=== PATIENT | male | born 1955 | race Caucasian/White ===

== ENCOUNTER 2018-05-31 09:15 | Inpatient (IN) | payer OTHER ==
[~2018-05-31] VITALS: Ht 182.9 cm; Wt 129.0 kg
[2018-05-31] MEDS ORDERED: LABE100T6 PO (09:42)
[2018-05-31] MEDS ORDERED: HYDR100T25 PO (09:42)
[2018-05-31] MEDS ORDERED: BENA40TA3 PO (09:43)
[2018-05-31] MEDS ORDERED: ALLO100T30 PO (09:44)
[2018-05-31] MEDS ORDERED: DOXA4TAB3 PO (09:44)
[2018-05-31 10:16] LABS: PROTHROMBIN TIME 10.6 Seconds (9.6-11.5)
--- NOTE | 2018-05-31 10:18 | NUR ---
PATIENT TO XRAY AT THIS TIME.
[2018-05-31 10:23] LABS: MEAN CORPUSCULAR HEMOGLOBIN 31.6 pg (27.5-34.5); MEAN CORPUSCULAR VOLUME 92.9 fL (81-97); MEAN PLATELET VOLUME 11.9 fL (7.4-10.4); PLATELET COUNT 80 x10^3/uL (130-400); RED BLOOD COUNT 4.43 x10^6/uL (4.38-5.82); RED CELL DISTRIBUTION WIDTH 13.2 % (9.4-14.8)
[2018-05-31 10:24] LABS: BASOPHILS # (AUTO) 0.03 x10^3/uL (0-0.1); BASOPHILS % (AUTO) 0 % (0-1); EOSINOPHILS # (AUTO) 0.28 x10^3/uL (0-0.4); EOSINOPHILS % (AUTO) 4 % (1-7); LYMPHOCYTES % (AUTO) 22 % (22-44); MD SCAN; MONOCYTES # (AUTO) 0.67 x10^3/uL (0.2-0.8); MONOCYTES % (AUTO) 8 % (2-9); NEUTROPHILS # (AUTO) 5.41 x10^3/uL (1.8-6.8); NEUTROPHILS % (AUTO) 66 % (42-75)
--- NOTE | 2018-05-31 10:28 | NUR ---
PATIENT BACK FROM XRAY.
[2018-05-31 10:35] LABS: ALBUMIN 3.3 g/dL (3.4-5.0); ANION GAP 7 mmol/L (5-15); CALCIUM 8.2 mg/dL (8.5-10.1); CHLORIDE 107 mmol/L (98-107)
[2018-05-31 10:48] LABS: ALANINE AMINOTRANSFERASE 30 U/L (12-78); ALKALINE PHOSPHATASE 118 U/L (45-117); BILIRUBIN,TOTAL 0.9 mg/dL (0.2-1.0); CREATININE 0.96 mg/dL (0.7-1.3)
[2018-05-31] MEDS ORDERED: AMPICILLIN/SULBACTAM 3 GM in SODIUM CHLORIDE 0.9% 100 ML IV ONE (10:56)
[2018-05-31] MEDS ORDERED: LIDOCAINE 1%, 10ML INFIL ONE (11:30)
[2018-05-31] MEDS ORDERED: LIDOCAINE-MPF 1%, 5ML ONE (11:30)
--- NOTE | 2018-05-31 12:21 | NUR ---
PIV STARTED AND IV UNASYN STARTED.
--- NOTE | 2018-05-31 12:59 | NUR ---
BREAK RN. ADMITTING PROVIDER AT BEDSIDE FOR EVALUATION. PT RESTING COMFORTABLY. VSS. CALL LIGHT IN REACH. FALL PRECAUTIONS IN PLACE.
--- NOTE | 2018-05-31 13:10 | NUR ---
BEDSIDE REPORT AND CARE BACK TO PRIMARY RN BILL RN AT THIS TIME.
--- NOTE | 2018-05-31 13:11 | NUR ---
SBAR TELEPHONE HAND-OFF REPORT GIVEN TO LEANNE MONET. PATIENT READY TO GO TO THE HOSPITAL ROOM.
[2018-05-31] MEDS ORDERED: SODIUM CHLORIDE 0.9% 1,000 ML IV SCH (13:36)
[2018-05-31] MEDS ORDERED: ACETAMINOPHEN 325 MG TABLET PO PRN (14:00)
[2018-05-31] MEDS ORDERED: hydrALAzine 20 MG/ML, 1ML IVPush PRN (14:00)
[2018-05-31] MEDS ORDERED: LABETALOL 5MG/ML, 20ML IVPush PRN (14:00)
[2018-05-31 14:16] VITALS: BP 123/65
[2018-05-31 14:33] LABS: HEMOGLOBIN A1C 5.4 % (4.2-6.3); THYROID STIMULATING HORMONE 2.24 mIU/L (0.358-3.740)
[2018-05-31 15:47] LABS: HCT (SEDRATE) 41.2 % (39.2-51.8)
[2018-05-31] MEDS ORDERED: VANCOMYCIN PER PHARMACY MC PRN (16:00)
[2018-05-31] MEDS ORDERED: PHARMACOKINETIC CONSULTATION MC ONE (16:30)
[2018-05-31] MEDS ORDERED: PHARMACOKINETIC MONITORING MC PRN (16:30)
[2018-05-31] MEDS: VANCOMYCIN 2,000 MG in SODIUM CHLORIDE 0.9% 500 ML IV SCH (17:09)
[2018-05-31] MEDS ORDERED: GADOBUTROL 10 MMOL/10 ML PFS ONE (18:06)
[2018-05-31 20:00] VITALS: BP 135/75
[2018-05-31] MEDS: AMPICILLIN/SULBACTAM 3 GM in SODIUM CHLORIDE 0.9% 100 ML IV SCH (20:20)
[2018-06-01 01:26] VITALS: BP 131/82
[2018-06-01] MEDS: AMPICILLIN/SULBACTAM 3 GM in SODIUM CHLORIDE 0.9% 100 ML IV SCH ×4 (01:58→20:44)
[2018-06-01] MEDS: VANCOMYCIN 2,000 MG in SODIUM CHLORIDE 0.9% 500 ML IV SCH ×2 (04:40→22:27)
[2018-06-01 05:25] LABS: MEAN CORPUSCULAR HEMOGLOBIN 32.1 pg (27.5-34.5); MEAN CORPUSCULAR HGB CONC 34.4 g/dL (33.2-36.2); MEAN CORPUSCULAR VOLUME 93.4 fL (81-97); RED BLOOD COUNT 4.36 x10^6/uL (4.38-5.82); RED CELL DISTRIBUTION WIDTH 13.4 % (9.4-14.8)
[2018-06-01 05:27] LABS: CHLORIDE 108 mmol/L (98-107)
[2018-06-01 05:45] LABS: ALANINE AMINOTRANSFERASE 30 U/L (12-78); ALBUMIN 3.3 g/dL (3.4-5.0); ALKALINE PHOSPHATASE 109 U/L (45-117); ANION GAP 6 mmol/L (5-15); BILIRUBIN,TOTAL 1.2 mg/dL (0.2-1.0); CALCIUM 8.2 mg/dL (8.5-10.1); TOTAL PROTEIN 6.8 g/dL (6.4-8.2)
[2018-06-01 06:06] LABS: PLATELET COUNT 87 x10^3/uL (130-400)
[2018-06-01 06:07] LABS: MD YES
[2018-06-01 06:09] LABS: BAND#(MANUAL) 0.15 x10^3/uL; BANDS%(MANUAL) 2 % (0-7); EOS% (MANUAL) 4 % (1-7); LYMPH#(MANUAL) 1.65 x10^3/uL (1-3.4); LYMPHS% (MANUAL) 22 % (22-44); MONOS#(MANUAL) 0.38 x10^3/uL (0.3-2.7); MONOS% (MANUAL) 5 % (2-9); REACTIVE LYMPHS # (MANUAL) 0.38 x10^3/uL (0-0); REACTIVE LYMPHS % (MANUAL) 5 % (0-0); SEG#(MANUAL) 4.65 x10^3/uL (1.8-6.8); SEGS% (MANUAL) 62 % (42-75)
[2018-06-01 06:10] LABS: <PLATELET ESTIMATE> DECREASED; <RBC MORPHOLOGY> NORMAL; LARGE PLATELETS 1+
[2018-06-01 07:07] VITALS: BP 132/72
[2018-06-01] MEDS: BENAZEPRIL 20 MG TABLET PO SCH (09:24)
[2018-06-01] MEDS: ALLOPURINOL 100 MG TABLET PO SCH (09:25)
[2018-06-01] MEDS: LABETALOL 100 MG TABLET PO SCH (09:25)
[2018-06-01] MEDS: DOXAZOSIN 2MG TABLET PO SCH (09:25)
[2018-06-01 13:41] VITALS: BP 148/80
[2018-06-01] MEDS ORDERED: MIDAZOLAM 1 MG/ML, 2ML ONE (17:18)
[2018-06-01] MEDS ORDERED: FENTANYL PF 100 MCG/2ML ONE ×2 (17:18→19:16)
[2018-06-01] MEDS ORDERED: BUPIVACAINE/PF 0.25% ONE (17:53)
[2018-06-01] MEDS ORDERED: DEXAMETHASONE 4 MG/ML, 1ML ONE (18:13)
[2018-06-01] MEDS ORDERED: PROPOFOL 10 MG/ML, 20ML ONE (18:13)
[2018-06-01] MEDS ORDERED: ONDANSETRON 2MG/ML, 2ML ONE (18:13)
[2018-06-01] MEDS ORDERED: SCOPOLAMINE PATCH, 1.5MG PATCH.TD72 TD PRN (19:00)
[2018-06-01] MEDS ORDERED: ALBUTEROL/IPRATROPIUM 2.5MG/0.5MG, 3 ML NPPB PRN (19:00)
[2018-06-01] MEDS ORDERED: ACETAMINOPHEN 325 MG TABLET PO PRN (19:00)
[2018-06-01] MEDS ORDERED: OXYcodone 5 MG/5 ML ORAL.SOL UDC PO PRN (19:00)
[2018-06-01] MEDS ORDERED: hydrALAzine 20 MG/ML, 1ML IV PRN (19:00)
[2018-06-01] MEDS ORDERED: METOPROLOL 1 MG/ML, 5ML IV PRN (19:00)
[2018-06-01] MEDS ORDERED: HYDROmorphone 2 MG/ML, 1ML IVPush PRN (19:00)
[2018-06-01] MEDS ORDERED: MIDAZOLAM 1 MG/ML, 2ML IV PRN (19:00)
[2018-06-01] MEDS ORDERED: PROMETHAZINE 25 MG/ML, 1ML IV PRN (19:00)
[2018-06-01] MEDS ORDERED: FENTANYL PF 100 MCG/2ML IV PRN (19:00)
[2018-06-01] MEDS ORDERED: ONDANSETRON 2MG/ML, 2ML IV PRN (19:00)
[2018-06-01] MEDS ORDERED: ACETAMINOPHEN 650 MG/20.3 ML UDC ONE (19:10)
[2018-06-01] MEDS ORDERED: OXYcodone 5 MG/5 ML ORAL.SOL UDC ONE (19:11)
[2018-06-01] MEDS ORDERED: hydrALAzine 20 MG/ML, 1ML ONE (19:33)
[2018-06-01 20:32] VITALS: BP 128/70
[2018-06-01] MEDS ORDERED: ONDANSETRON 2MG/ML, 2ML IVPush PRN (21:30)
[2018-06-01] MEDS: OXYcodone/APAP 5/325MG TABLET PO PRN ×2 (22:27→23:12)
[2018-06-02 00:54] VITALS: BP 106/75
[2018-06-02] MEDS: AMPICILLIN/SULBACTAM 3 GM in SODIUM CHLORIDE 0.9% 100 ML IV SCH ×4 (02:33→20:11)
[2018-06-02] MEDS: OXYcodone/APAP 5/325MG TABLET PO PRN ×5 (02:54→20:11)
[2018-06-02 07:30] VITALS: BP 143/70
[2018-06-02] MEDS: DOXAZOSIN 2MG TABLET PO SCH (08:04)
[2018-06-02] MEDS: ALLOPURINOL 100 MG TABLET PO SCH (08:04)
[2018-06-02] MEDS: BENAZEPRIL 20 MG TABLET PO SCH (08:05)
[2018-06-02] MEDS: LABETALOL 100 MG TABLET PO SCH (08:05)
[2018-06-02] MEDS: VANCOMYCIN 2,000 MG in SODIUM CHLORIDE 0.9% 500 ML IV SCH ×2 (10:19→22:02)
[2018-06-02] MEDS ORDERED: BISACODYL 10 MG SUPP PR PRN (12:30)
[2018-06-02] MEDS ORDERED: SENNA/DOCUSATE TABLET PO PRN (12:30)
[2018-06-02] MEDS: DOCUSATE 100 MG CAPSULE PO SCH (13:02)
[2018-06-02 13:30] VITALS: BP 147/87
[2018-06-02 19:36] VITALS: BP 136/75
[2018-06-03] MEDS: OXYcodone/APAP 5/325MG TABLET PO PRN ×6 (00:11→22:07)
[2018-06-03] MEDS: AMPICILLIN/SULBACTAM 3 GM in SODIUM CHLORIDE 0.9% 100 ML IV SCH ×2 (02:42→08:09)
[2018-06-03 02:57] VITALS: BP 99/60
[2018-06-03 07:43] VITALS: BP 122/71
[2018-06-03] MEDS: LABETALOL 100 MG TABLET PO SCH (08:12)
[2018-06-03] MEDS: DOXAZOSIN 2MG TABLET PO SCH (08:13)
[2018-06-03] MEDS: DOCUSATE 100 MG CAPSULE PO SCH (08:14)
[2018-06-03] MEDS: BENAZEPRIL 20 MG TABLET PO SCH (08:14)
[2018-06-03] MEDS: ALLOPURINOL 100 MG TABLET PO SCH (08:14)
[2018-06-03] MEDS: VANCOMYCIN 2,000 MG in SODIUM CHLORIDE 0.9% 500 ML IV SCH (12:18)
[2018-06-03 13:59] VITALS: BP 122/66
[2018-06-03] MEDS: SODIUM CHLORIDE 0.9% IVPB SCH (14:06)
[2018-06-03] MEDS: DAPTOMYCIN IVPB SCH (14:06)
[2018-06-03 20:31] VITALS: BP 153/76
[2018-06-04] MEDS: OXYcodone/APAP 5/325MG TABLET PO PRN ×4 (02:41→20:46)
[2018-06-04 02:52] VITALS: BP 151/81
[2018-06-04 05:16] LABS: MEAN CORPUSCULAR HEMOGLOBIN 31.7 pg (27.5-34.5); MEAN CORPUSCULAR HGB CONC 33.9 g/dL (33.2-36.2); MEAN CORPUSCULAR VOLUME 93.3 fL (81-97); RED BLOOD COUNT 4.03 x10^6/uL (4.38-5.82)
[2018-06-04 05:23] LABS: ALBUMIN 2.9 g/dL (3.4-5.0); ANION GAP 5 mmol/L (5-15); CHLORIDE 108 mmol/L (98-107)
[2018-06-04 05:24] LABS: HCT (SEDRATE) 37.6 % (39.2-51.8)
[2018-06-04 05:33] LABS: ALANINE AMINOTRANSFERASE 44 U/L (12-78); ALKALINE PHOSPHATASE 90 U/L (45-117); BILIRUBIN,TOTAL 0.4 mg/dL (0.2-1.0); CALCIUM 7.8 mg/dL (8.5-10.1); CREATINE KINASE, TOTAL 49 U/L (39-308); CREATININE 1.05 mg/dL (0.7-1.3); TOTAL PROTEIN 6.1 g/dL (6.4-8.2)
[2018-06-04 05:56] LABS: PLATELET COUNT 78 x10^3/uL (130-400); RED CELL DISTRIBUTION WIDTH 13.3 % (9.4-14.8)
[2018-06-04 05:58] LABS: BASOPHILS # (AUTO) 0.04 x10^3/uL (0-0.1); BASOPHILS % (AUTO) 1 % (0-1); EOSINOPHILS # (AUTO) 0.29 x10^3/uL (0-0.4); EOSINOPHILS % (AUTO) 4 % (1-7); LYMPHOCYTES # (AUTO) 2.16 x10^3/uL (1-3.4); LYMPHOCYTES % (AUTO) 29 % (22-44); MD SCAN; MONOCYTES # (AUTO) 0.75 x10^3/uL (0.2-0.8); MONOCYTES % (AUTO) 10 % (2-9); NEUTROPHILS # (AUTO) 4.27 x10^3/uL (1.8-6.8); NEUTROPHILS % (AUTO) 57 % (42-75)
[2018-06-04 07:14] VITALS: BP 143/76
[2018-06-04] MEDS: LABETALOL 100 MG TABLET PO SCH (09:08)
[2018-06-04] MEDS ORDERED: GADOBUTROL 10 MMOL/10 ML PFS ONE (09:50)
[2018-06-04] MEDS: BENAZEPRIL 20 MG TABLET PO SCH (10:25)
[2018-06-04] MEDS: DOCUSATE 100 MG CAPSULE PO SCH (10:25)
[2018-06-04] MEDS: DOXAZOSIN 2MG TABLET PO SCH (10:26)
[2018-06-04] MEDS: ALLOPURINOL 100 MG TABLET PO SCH (10:26)
[2018-06-04 12:39] VITALS: BP 156/79
[2018-06-04] MEDS: SODIUM CHLORIDE 0.9% IVPB SCH (13:52)
[2018-06-04] MEDS: DAPTOMYCIN IVPB SCH (13:52)
[2018-06-04] MEDS ORDERED: LIDOCAINE-MPF 1%, 5ML ONE (14:51)
[2018-06-04 19:28] VITALS: BP 149/83
[2018-06-05 01:45] VITALS: BP 141/78
[2018-06-05 07:24] VITALS: BP 162/95
[2018-06-05] MEDS: LABETALOL 100 MG TABLET PO SCH (09:01)
[2018-06-05] MEDS: DOXAZOSIN 2MG TABLET PO SCH (09:02)
[2018-06-05] MEDS: BENAZEPRIL 20 MG TABLET PO SCH (09:02)
[2018-06-05] MEDS: OXYcodone/APAP 5/325MG TABLET PO PRN ×2 (09:02→17:33)
[2018-06-05] MEDS: ALLOPURINOL 100 MG TABLET PO SCH (09:02)
[2018-06-05] MEDS: DOCUSATE 100 MG CAPSULE PO SCH (09:02)
[2018-06-05 12:58] VITALS: BP 146/74
[2018-06-05] MEDS: DAPTOMYCIN IVPB SCH (14:03)
[2018-06-05] MEDS: SODIUM CHLORIDE 0.9% IVPB SCH (14:03)
[2018-06-05 19:43] VITALS: BP 158/86
[2018-06-06 00:51] VITALS: BP 141/84
[2018-06-06] MEDS: OXYcodone/APAP 5/325MG TABLET PO PRN ×3 (00:53→18:12)
[2018-06-06 08:10] VITALS: BP 153/78
[2018-06-06] MEDS: LABETALOL 100 MG TABLET PO SCH (09:00)
[2018-06-06] MEDS: DOCUSATE 100 MG CAPSULE PO SCH (09:35)
[2018-06-06] MEDS: DOXAZOSIN 2MG TABLET PO SCH (09:35)
[2018-06-06] MEDS: BENAZEPRIL 20 MG TABLET PO SCH (09:35)
[2018-06-06] MEDS: ALLOPURINOL 100 MG TABLET PO SCH (09:36)
[2018-06-06 14:00] VITALS: BP 152/88
[2018-06-06] MEDS: SODIUM CHLORIDE 0.9% IVPB SCH (14:08)
[2018-06-06] MEDS: DAPTOMYCIN IVPB SCH (14:08)
[2018-06-06 19:25] VITALS: BP 152/83
[2018-06-07] MEDS: OXYcodone/APAP 5/325MG TABLET PO PRN ×2 (02:20→15:15)
[2018-06-07 02:27] VITALS: BP 151/82
[2018-06-07 08:00] VITALS: BP 147/80
[2018-06-07] MEDS: LABETALOL 100 MG TABLET PO SCH (09:00)
[2018-06-07] MEDS ORDERED: DAPTOMYCIN 800 MG in SODIUM CHLORIDE 0.9% 100 ML IVPB SCH (09:04)
[2018-06-07] MEDS: BENAZEPRIL 20 MG TABLET PO SCH (09:52)
[2018-06-07] MEDS: DOCUSATE 100 MG CAPSULE PO SCH (09:53)
[2018-06-07] MEDS: ALLOPURINOL 100 MG TABLET PO SCH (09:54)
[2018-06-07] MEDS: DOXAZOSIN 2MG TABLET PO SCH (09:54)
[2018-06-07 13:15] VITALS: BP 155/75
[2018-06-07 14:00] LABS: BASOPHILS # (AUTO) 0.02 x10^3/uL (0-0.1); BASOPHILS % (AUTO) 0 % (0-1); EOSINOPHILS # (AUTO) 0.29 x10^3/uL (0-0.4); EOSINOPHILS % (AUTO) 4 % (1-7); HEMOGRAM NOTE RECHECKED; LYMPHOCYTES # (AUTO) 1.75 x10^3/uL (1-3.4); LYMPHOCYTES % (AUTO) 25 % (22-44); MD NO; MEAN CORPUSCULAR HEMOGLOBIN 32.1 pg (27.5-34.5); MEAN CORPUSCULAR HGB CONC 34.5 g/dL (33.2-36.2); MEAN CORPUSCULAR VOLUME 92.8 fL (81-97); MEAN PLATELET VOLUME 12.1 fL (7.4-10.4); MONOCYTES # (AUTO) 0.54 x10^3/uL (0.2-0.8); MONOCYTES % (AUTO) 8 % (2-9); NEUTROPHILS # (AUTO) 4.49 x10^3/uL (1.8-6.8); NEUTROPHILS % (AUTO) 63 % (42-75); PLATELET COUNT 90 x10^3/uL (130-400); RED CELL DISTRIBUTION WIDTH 13.2 % (9.4-14.8)
[2018-06-07] MEDS ORDERED: OXYC-302 PO (14:21)
[2018-06-07] MEDS ORDERED: DAPT500V6 IV (14:21)
[2018-06-07] MEDS ORDERED: FLU VAC QS18-19(4YR UP)CEL/PF 0.5ML IM-VACC ONE (16:30)
== END 2018-06-07 17:03 | disposition home or self-care (01) | DRG 504 ==
LOC: ED 10:57 → EDIP 10:58 → ED 11:11 → 3NW 13:39
PROVIDERS: ADMIT Hospitalist; ATTEND Hospitalist
PROC: 0H9NXZZ Drainage of Left Foot Skin, External Approach (ICD-10-PCS; 2018-05-31)
PROC: 3E0T3BZ Introduction of Anesthetic Agent into Peripheral Nerves and Plexi, Percutaneous Approach (ICD-10-PCS; 2018-06-01)
PROC: 0Y6P0Z1 Detachment at Right 1st Toe, High, Open Approach (ICD-10-PCS; principal; 2018-06-01 18:00)
PROC: 02HV33Z Insertion of Infusion Device into Superior Vena Cava, Percutaneous Approach (ICD-10-PCS; 2018-06-04)
PROC: B548ZZA Ultrasonography of Superior Vena Cava, Guidance (ICD-10-PCS; 2018-06-04)
PROC: B5181ZA Fluoroscopy of Superior Vena Cava using Low Osmolar Contrast, Guidance (ICD-10-PCS; 2018-06-04)
DX: M86.171 Other acute osteomyelitis, right ankle and foot (principal); D69.3 Immune thrombocytopenic purpura; L03.116 Cellulitis of left lower limb; L02.612 Cutaneous abscess of left foot; B95.62 Methicillin resistant Staphylococcus aureus infection as the cause of diseases classified elsewhere; I10 Essential (primary) hypertension; R73.9 Hyperglycemia, unspecified; L03.032 Cellulitis of left toe; L08.9 Local infection of the skin and subcutaneous tissue, unspecified; L84 Corns and callosities; M19.072 Primary osteoarthritis, left ankle and foot; M1A.9XX0 Chronic gout, unspecified, without tophus (tophi); Z89.411 Acquired absence of right great toe; Z23 Encounter for immunization; Z88.8 Allergy status to other drugs, medicaments and biological substances
CPT/HCPCS: 36415; 36569; 36573; 76937; 77001; 80053; 80202; 82550; 83036; 83735; 84100; 84443; 84550; 85025; 85610; 85651; 86140; 87070; 87075; 87077; 87186; 87205; 88305; 88311; 90674; 93005; 96365; 96366; A9585; G0378; J0295; J0878; J1100; J2250; J2405; J2704; J3010; J3370; J3490; C1751; J0360; J7030; J7040

== ENCOUNTER → 2020-10-23 | Outpatient (CLI) | payer OTHER ==
[~2020-10-23] MED LIST: ALLO100T30 PO; BENA40TA3 PO; DAPT500V6 IV; DOXA4TAB3 PO; HYDR100T25 PO; LABE100T6 PO; OXYC1TAB14 PO
== END | disposition home or self-care (01) ==
LOC: CVU 09:34
PROVIDERS: ATTEND Physician Assistant Medical
DX: I08.0 Rheumatic disorders of both mitral and aortic valves (principal); E78.00 Pure hypercholesterolemia, unspecified; I11.9 Hypertensive heart disease without heart failure
CPT/HCPCS: C8929; Q9957

== ENCOUNTER 2020-12-16 11:24 | Emergency (ER) | payer OTHER ==
[~2020-12-16] VITALS: Ht 182.9 cm; Wt 130.2 kg
--- NOTE | 2020-12-16 11:58 | NUR ---
network consultant: Pt ambulatory to room from lobby at this time.
[2020-12-16] MEDS ORDERED: OXYcodone/APAP 5/325MG TABLET ONE (13:45)
[2020-12-16] MEDS ORDERED: OXYcodone/APAP 5/325MG TABLET PO ONE (14:00)
[2020-12-16] MEDS ORDERED: BENZOCAINE 20% SPRAY 0.5ML TP ONE (14:00)
[2020-12-16] MEDS ORDERED: LIDOCAINE-MPF 1%, 5ML INFIL ONE (14:00)
[2020-12-16] MEDS ORDERED: BENZOCAINE 20% SPRAY 0.5ML ONE (14:02)
[2020-12-16] MEDS ORDERED: LIDOCAINE-MPF 1%, 2ML ONE (14:03)
[2020-12-16 14:08] LABS: BASOPHILS % (AUTO) 1 % (0-1); EOSINOPHILS % (AUTO) 3 % (1-7); LYMPHOCYTES % (AUTO) 22 % (22-44); MEAN CORPUSCULAR HEMOGLOBIN 32.2 pg (27.5-34.5); MEAN CORPUSCULAR HGB CONC 34.5 g/dL (33.2-36.2); MEAN PLATELET VOLUME 9.8 fL (7.4-10.4); MONOCYTES % (AUTO) 9 % (2-9); NEUTROPHILS % (AUTO) 66 % (42-75); PLATELET COUNT 114 x10^3/uL (130-400); RED BLOOD COUNT 4.61 x10^6/uL (4.38-5.82); RED CELL DISTRIBUTION WIDTH 13.1 % (9.4-14.8)
[2020-12-16 14:12] LABS: ALBUMIN 3.2 g/dL (3.4-5.0); ANION GAP 4 mmol/L (5-15); CALCIUM 8.3 mg/dL (8.5-10.1); CHLORIDE 105 mmol/L (98-107); CREATININE 0.86 mg/dL (0.7-1.3)
--- NOTE | 2020-12-16 14:51 | NUR ---
BREAK RN: PT RESTING IN ROOM. VS STABLE. NO ACUTE DISTRESS. PT READY FOR DC. CALL LIGHT IN PLACE. WILL COTNINUE TO MONITOR WHILE PRIMARY RN IS ON BREAK.
[2020-12-16] MEDS ORDERED: OMNIPAQUE 350 MG/ML, 100ML BOTTLE ONE (15:31)
[2020-12-16 15:59] VITALS: BP 118/68
--- NOTE | 2020-12-16 16:14 | NUR ---
PT REC'VD DISCHARGE INSTRUCTIONS AND EDUCATION. PT HAD NO FURTHER QUESTIONS.
--- NOTE | 2020-12-16 16:23 | NUR ---
PT AMBULATED TO WI AREA, STEADY GAIT.
== END 2020-12-16 16:26 | disposition home or self-care (01) ==
LOC: ED 14:20
DX: J36 Peritonsillar abscess (principal); I10 Essential (primary) hypertension; M10.9 Gout, unspecified
CPT/HCPCS: 36415; 70491; 80048; 82040; 85025; 99285; Q9967